=== PATIENT | female | born 1960 | race Caucasian/White ===

== ENCOUNTER 2018-04-22 07:44 | Day surgery (SDC) | payer BC, OTHER ==
[~2018-04-22 07:44] MED LIST: Midazolam 1 MG/ML 2 ML SDV ONE; Propofol 200 MG/20 ML SDV ONE; fentaNYL 100 MCG/2 ML SDV ONE
[2018-04-22] MEDS ORDERED: Dextrose 5%-Lactated Ringers 1,000 ML IV SCH (08:30)
--- NOTE | 2018-04-29 15:20 | OR ---
DATE OF PROCEDURE: 04/22/2018 PREOPERATIVE DIAGNOSIS: Indications for screening colonoscopy. POSTOPERATIVE DIAGNOSIS: Normal colonic examination. OPERATIVE PROCEDURE: Flexible colonoscopy. ANESTHESIA: IV sedation. INDICATION FOR PROCEDURE: This is a 58-year-old female presenting for followup screening colonoscopy. She has both a family history of colon carcinoma in terms of her uncles and personally has a history of adenomatous polyps. Plan is to proceed with a flexible colonoscopy with biopsies and/or polypectomy as indicated. Potential risks including bleeding and perforation were discussed, and the patient wishes to proceed. DETAILS OF PROCEDURE: The patient was taken to the operating room and placed in a left lateral decubitus position. IV sedation was administered after which the initial digital rectal exam was performed and was unremarkable. The colonoscope was then passed into the rectum with retroflexion revealing uncomplicated hemorrhoidal columns. The scope was then eventually passed to the level of the cecum. The prep was fairly good with only a small amount of liquid stool present to that level. No abnormalities were noticed. Specifically, there were no diverticula. No areas of colitis. No polyps or other signs of neoplasia. The scope was then withdrawn with the above findings reconfirmed, and the procedure was then concluded. The patient was taken to the recovery room in satisfactory condition. Recommendations would be to repeat the colonoscopy in 5 years given the family history and personal history of polyps. Huan Johnson MD /[id number]
== END 2018-04-22 11:45 | disposition home or self-care (01) ==
LOC: JP.SDS 07:44
PROVIDERS: ATTEND Surgery
DX: Z12.11 Encounter for screening for malignant neoplasm of colon (principal); K64.9 Unspecified hemorrhoids; Z86.010 Personal history of colon polyps; E11.9 Type 2 diabetes mellitus without complications; Z88.0 Allergy status to penicillin; Z88.2 Allergy status to sulfonamides; Z91.048 Other nonmedicinal substance allergy status
CPT/HCPCS: 45378; J2250; J2704; J3010; J7042

== ENCOUNTER 2023-02-09 06:22 | Emergency (ER) | payer BC ==
[2023-02-09] MEDS ORDERED: LORazepam 2 MG/ML SDV IM ONE (07:01)
== END 2023-02-09 07:54 ==
LOC: JP.ED 06:22
DX: H43.811 Vitreous degeneration, right eye (principal); I10 Essential (primary) hypertension; E11.9 Type 2 diabetes mellitus without complications; E66.9 Obesity, unspecified; Z86.16 Personal history of COVID-19; Z79.01 Long term (current) use of anticoagulants; Z79.899 Other long term (current) drug therapy; Z88.8 Allergy status to other drugs, medicaments and biological substances; Z88.0 Allergy status to penicillin; Z88.2 Allergy status to sulfonamides; Z91.048 Other nonmedicinal substance allergy status; Z79.84 Long term (current) use of oral hypoglycemic drugs; Z68.37 Body mass index [BMI] 37.0-37.9, adult
CPT/HCPCS: 99283